=== PATIENT | male | born 1990 | race Caucasian/White ===

== ENCOUNTER 2021-12-17 15:38 | Emergency (ER) | payer BC, SELFPAY ==
--- NOTE | ~2021-12-17 | XR_ITS ---
EXAM: XR foot LT min 3V HISTORY: FALL, PAIN 1ST METATARSAL AND PROXIMAL PHALANX COMPARISON: None available FINDINGS: Normal mineralization. No fracture or dislocation. No lytic or blastic lesion. Joint space s maintained. Mild hallux valgus. No erosion or periosteal change. Soft tissues within normal limits. IMPRESSION: No acute osseous finding in the left foot. Reviewed, dictated and finalized at location K.
[2021-12-17 15:43] VITALS: BP 177/120; PULSE 94; RESP 17; TEMP 36.7; O2SAT 100
--- NOTE | 2021-12-17 16:27 | ED.LOWEXIN ---
HPI - Extremity Injury (Lower) General Chief Complaint: Extremity Injury, Lower Stated Complaint: toe injury Time Seen by Provider: 12/17/21 16:08 History of Present Illness HPI Narrative: 30-year-old male presents emergency room complaining of left great toe pain. Patient states that he slipped and fell in the garage and hyperflexed his great toe on his foot. Related Data Allergies Allergy/AdvReac Type Severity Reaction Status Date / Time No Known Allergies Allergy Unverified 12/16/14 12:11 Review of Systems Review of Systems: CONSTITUTIONAL: Denies fever, chills, or sweats. EYES: Denies visual changes, redness, or discharge. ENT: Denies rhinorrhea, congestion, sore throat, or otalgia. CARDIOVASCULAR: Denies chest pain, palpitations, or edema. RESPIRATORY: Denies cough or dyspnea. GASTROINTESTINAL: Denies abdominal pain, nausea, vomiting, or diarrhea. GENITOURINARY: Denies dysuria or hematuria. SKIN: Denies rash or itching. MUSCULOSKELETAL: Reports left great toe pain NEUROLOGIC: Denies headache, numbness, dizziness, or weakness. PSYCHIATRIC: Denies anxiety or depression. Exam Narrative: GENERAL: Well-appearing, well-nourished, and in no acute distress. HEAD: Normocephalic, atraumatic. EYES: PERRLA and EOMI. CHEST: Clear to auscultation. No respiratory distress. No wheezes rales or rhonchi HEART: Regular rate and rhythm. No murmur heard. Normal peripheral pulses. EXTREMITIES: Normal range of motion. No edema. Left great toe: Tenderness to the MTP and IP joints, distal and proximal phalanges with generalized soft tissue swelling; pain with plantarflexion; neurovascular distally intact SKIN: Warm, dry, no rash. NEURO: No focal deficits. Alert and oriented x3. PSYCH: Normal mood and affect. Course Vital Signs Vital signs: Vital Signs Temperature 36.7 C 12/17/21 15:43 Pulse Rate 94 12/17/21 15:43 Respiratory Rate 17 12/17/21 15:43 Blood Pressure 177/120 H 12/17/21 15:43 Pulse Oximetry 100 12/17/21 15:43 Temperature 36.7 C 12/17/21 15:43 Pulse Rate 94 12/17/21 15:43 Respiratory Rate 17 04/13/22 15:43 Blood Pressure 177/120 H 12/17/21 15:43 Pulse Oximetry 100 12/17/21 15:43 MDM - Extremity Injury (Lower) MDM Narrative Medical decision making narrative: 30-year-old male presents emergency room with complaints of left great toe pain, that occurred after he slipped and fell in the garage hyperflexed his toe underneath his foot. X-ray shows no acute bony abnormality. Patient likely has contusion of his left great toe Medical Records Attestation: I reviewed the patient's medical records. Imaging Data Radiologist's impression: Impressions Foot X-Ray 12/17/21 16:40 IMPRESSION: No acute osseous finding in the left foot. Discharge Plan Discharge Clinical Impression: Contusion of toe of left foot Qualifiers: Encounter type: initial encounter Toe: great toe Damage to nail status: without damage Qualified Code(s): S90.112A - Contusion of left great toe without damage to nail, initial encounter Patient Disposition: Home, Self-Care Condition: Stable Instructions: Antibiotic Form Prescriptions: New celecoxib [Celebrex] 200 mg capsule 200 mg PO BID Qty: 14 RF: 0 Follow-up/Referrals: PHYSICIAN,[employer] [Primary Care Provider] - Stand Alone Forms: Work/School Release IP Time of Disposition: 17:15
== END 2021-12-17 17:35 | disposition home or self-care (01) ==
PROVIDERS: Emergency Provider Nurse Practitioner Family
DX: S90.112A Contusion of left great toe without damage to nail, initial encounter (principal); W01.0XXA Fall on same level from slipping, tripping and stumbling without subsequent striking against object, initial encounter
CPT/HCPCS: 73630; 99283